=== PATIENT | male | born 1985 | race American Indian/Alaskan Native ===

== ENCOUNTER 2022-06-04 16:36 | Emergency (ER) | payer SELFPAY ==
[2022-06-04 17:28] VITALS: BP 118/76
[2022-06-04] MEDS ORDERED: cephALEXin 500 MG CAP PO ONE (22:23)
[2022-06-04] MEDS ORDERED: traMADol 50 MG TAB PO ONE (22:23)
--- NOTE | 2022-06-04 22:24 | Emergency Department Report ---
ED General Adult HPI - General Chief complaint: Skin/Abscess/Foreign Body Stated complaint: BOIL ON FACE/STOMACH Time Seen by Provider: 06/04/22 22:06 Source: patient Mode of arrival: Ambulatory Limitations: No Limitations - History of Present Illness Initial comments: 37-year-old male who presents for boil to right cheek x4 days. Has history of same. And pseudofolliculitis. Has been no fevers no chills. Patient states sinus drainage pain when attempting to self express. There is no fevers no chills. There is no other symptoms. Symptoms are exacerbated by palpation. Symptoms are relieved by nothing tried. - Related Data Previous Rx's Medication Instructions Recorded Last Taken Type cephALEXin [Keflex] 500 mg PO Q8HR 7 Days #21 cap 06/04/22 Unknown Rx traMADoL [Ultram] 50 mg PO Q6HR PRN #12 tablet 06/04/22 Unknown Rx Allergies Allergy/AdvReac Type Severity Reaction Status Date / Time No Known Allergies Allergy Unverified 06/04/22 17:24 ED Review of Systems ROS: Stated complaint: BOIL ON FACE/STOMACH Other details as noted in HPI Constitutional: denies: chills, fever Eyes: denies: eye pain, eye discharge, vision change ENT: denies: ear pain, throat pain Respiratory: denies: cough, shortness of breath, wheezing Cardiovascular: denies: chest pain, palpitations Endocrine: no symptoms reported Gastrointestinal: denies: abdominal pain, nausea, diarrhea Genitourinary: denies: urgency, dysuria Musculoskeletal: denies: back pain, joint swelling, arthralgia Skin: denies: rash, lesions Neurological: denies: headache, weakness, paresthesias Psychiatric: denies: anxiety, depression Hematological/Lymphatic: denies: easy bleeding, easy bruising ED Past Medical Hx - Medications Home Medications: Home Medications Medication Instructions Recorded Confirmed Last Taken Type cephALEXin [Keflex] 500 mg PO Q8HR 7 Days #21 cap 06/04/22 Unknown Rx traMADoL [Ultram] 50 mg PO Q6HR PRN #12 tablet 06/04/22 Unknown Rx ED Physical Exam - General Limitations: No Limitations General appearance: alert, in no apparent distress - Head Head exam: Present: normocephalic, normal inspection - Eye Eye exam: Present: EOMI Pupils: Present: normal accommodation - ENT ENT exam: Present: normal exam - Neck Neck exam: Present: normal inspection, full ROM. Absent: tenderness - Respiratory Respiratory exam: Present: normal lung sounds bilaterally. Absent: respiratory distress, wheezes - Cardiovascular Cardiovascular Exam: Present: regular rate, normal rhythm, normal heart sounds. Absent: systolic murmur, diastolic murmur, rubs, gallop - GI/Abdominal GI/Abdominal exam: Present: soft, normal bowel sounds - Rectal Rectal exam: Present: deferred - Extremities Exam Extremities exam: Present: normal inspection, full ROM, normal capillary refill - Back Exam Back exam: Present: normal inspection, full ROM. Absent: tenderness - Neurological Exam Neurological exam: Present: alert, oriented X3 - Psychiatric Psychiatric exam: Present: normal affect, normal mood - Skin Skin exam: Present: warm, dry, intact, erythema (Abscess right cheek 1 x 1 cm fluctuant erythema painful to touch) ED Course Vital Signs 06/04/22 17:24 Temperature 98.7 F Pulse Rate 85 Respiratory 18 Rate Blood Pressure 118/76 [Left] O2 Sat by Pulse 100 Oximetry - Procedure Description Procedures done: Right cheek abscess 1 x 1 cm site cleaned with Betadine solution. Abscess manually expressed with 4 x 4 gauze. Moderate purulent drainage. Core was removed intact. All bleeding controlled sterile dressings applied patient tolerated procedure with minimal distress. ED Medical Decision Making - Medical Decision Making Facial abscess manually decompressed. Patient given wound care instructions including soap and water wash daily. Gauze dressing. DC to home with prescriptions. We will follow-up with primary care doctor in 2 to 3 days. Patient verbalized agreement and understanding with discharge plan. Patient DC'd home in stable condition at this time. Critical care attestation.: If time is entered above; I have spent that time in minutes in the direct care of this critically ill patient, excluding procedure time. ED Disposition Clinical Impression: Abscess of face Disposition: HOME / SELF CARE / HOMELESS Is pt being admited?: No Does the pt Need Aspirin: No Condition: Stable Instructions: Skin Abscess Additional Instructions: Take medications as prescribed, wound care as directed. Follow-up with your doctor in 2 to 3 days. Return to emergency department should symptoms worsen. Prescriptions: cephALEXin [Keflex] 500 mg PO Q8HR 7 Days #21 cap traMADoL [Ultram] 50 mg PO Q6HR PRN #12 tablet PRN Reason: Pain Referrals: NAYELY REYES MD [Staff Physician] - 3-5 Days Forms: Work/School Release Form(ED) Time of Disposition: 22:25
== END 2022-06-04 23:04 | disposition home or self-care (01) ==
LOC: ED 16:36
DX: L02.01 Cutaneous abscess of face (principal)
CPT/HCPCS: 99282